=== PATIENT | male | born 1985 | race Two or more races ===

== ENCOUNTER 2016-03-30 10:12 | Emergency (ER) | payer BC, OTHER ==
[~2016-03-30] VITALS: Ht 170.2 cm; Wt 117.9 kg
[2016-03-30 10:12] VITALS: BP 127/73; PULSE 73; RESP 18; TEMP 96.5; O2SAT 96
--- NOTE | 2016-03-30 10:12 | NUR ---
BROUGHT BACK TO BED #1 AND TRIAGED, REPORT GIVEN TO SEAN
--- NOTE | 2016-03-30 10:20 | NUR ---
Patient awake in bed, stable condition, alert and oriented x4. Visitor present. States has had cough for two weeks-sometimes is dry and sometimes coughs up white/brown like substance, coughed up small amount of blood 1x this AM. Non-productive cough noted at this time. No other complaints/injuries per patient or noted.
--- NOTE | 2016-03-30 10:30 | NUR ---
Dr. Apple at bedside.
[2016-03-30] MEDS ORDERED: methylPREDNISolone SOD SUCC/PF 62.5 MG/ML VIAL IVP ONE (10:45)
[2016-03-30] MEDS ORDERED: ALBUTEROL SULFATE 0.083% 2.5 MG/3 ML VIAL.NEB INH ONE (10:45)
--- NOTE | 2016-03-30 10:52 | NUR ---
Patient placed on breathing tx by RT, 02 sat 99%
[2016-03-30 11:47] VITALS: BP 120/74; PULSE 74; RESP 18; TEMP 97.1; O2SAT 97
--- NOTE | 2016-03-30 11:47 | NUR ---
Patient given written and verbal discharge instructions and verbalizes understanding. ER MD discussed with patient the results and treatment provided. Patient in stable condition. ID arm band removed. IV catheter removed intact and dressing applied, no active bleeding. Rx of azithromycin, prednisone, promethazine, and proair hfa given. Patient educated on pain management and to follow up with PMD in 2 days. Pain Scale 0/10. Opportunity for questions provided and answered.
== END 2016-03-30 11:47 | disposition home or self-care (01) ==
LOC: SED 10:12
DX: J45.901 Unspecified asthma with (acute) exacerbation (principal); R03.0 Elevated blood-pressure reading, without diagnosis of hypertension
CPT/HCPCS: 71010; 94640; 96374; 99284; J2930